=== PATIENT | female | born 1990 | race Caucasian/White ===

== ENCOUNTER 2018-09-07 18:05 | Emergency (ER) | payer MEDICAID ==
[~2018-09-07] VITALS: Ht 157.5 cm; Wt 50.0 kg
[2018-09-07 18:11] VITALS: BP 145/67
[2018-09-07] MEDS ORDERED: IBUP-1984 PO (18:48)
[2018-09-07] MEDS ORDERED: PENI500T2 PO (18:48)
== END 2018-09-07 19:04 | disposition home or self-care (01) ==
LOC: ER 18:06
DX: K04.7 Periapical abscess without sinus (principal); K02.9 Dental caries, unspecified; K05.10 Chronic gingivitis, plaque induced; F17.200 Nicotine dependence, unspecified, uncomplicated; Z79.2 Long term (current) use of antibiotics; Z79.899 Other long term (current) drug therapy
CPT/HCPCS: 99283

== ENCOUNTER 2019-11-18 13:38 | Emergency (ER) | payer MEDICAID, OTHER ==
[~2019-11-18] VITALS: Ht 157.5 cm; Wt 50.9 kg
[2019-11-18 13:50] VITALS: BP 113/67
[2019-11-18] MEDS ORDERED: PENI500T2 PO (14:31)
[2019-11-18] MEDS ORDERED: IBUP-1984 PO (14:31)
== END 2019-11-18 15:03 | disposition home or self-care (01) ==
LOC: ER 13:38
DX: K04.7 Periapical abscess without sinus (principal); Z79.899 Other long term (current) drug therapy
CPT/HCPCS: 99283

== ENCOUNTER 2020-08-09 16:55 | Emergency (ER) | payer SELFPAY ==
[~2020-08-09] VITALS: Ht 157.5 cm; Wt 43.6 kg
[2020-08-09 21:56] VITALS: BP 120/71
[2020-08-09] MEDS ORDERED: ketorolac trometh inj. 60 MG/2 ML VIAL IM ONE (22:05)
[2020-08-09] MEDS ORDERED: amoxicillin 250mg capsule PO ONE (22:05)
[2020-08-09] MEDS ORDERED: ondansetron 4mg rapidly disintigrating tab PO ONE (22:05)
[2020-08-09] MEDS ORDERED: AMOX500C2 PO (22:06)
== END 2020-08-09 22:30 | disposition home or self-care (01) ==
LOC: ER 16:55
DX: K08.89 Other specified disorders of teeth and supporting structures (principal); Z79.899 Other long term (current) drug therapy
CPT/HCPCS: 96372; 99283; J1885